=== PATIENT | female | born 1940 | race Caucasian/White ===

== ENCOUNTER 2022-05-18 10:00 | Outpatient (RCR) | payer MEDICARE, SELFPAY ==
--- NOTE | 2022-04-13 09:55 | PTOPEVAL1 ---
Assessment and note entered by Eduin Issa, PT, DPT Evaluation Information Assessment Status Evaluation Diagnosis R sided sciatic Onset 3-4 months Subjective Information Pt reports R sided buttock pain that travels down into her lees. She has received Cortizone injections which seem to help. Pt states she really enjoys cooking, she states her leg pain has been a limiting factor in this. She states sitting improves her pain. She reports a fall in October but no other falls since then. Reported Pain Level Pain Score 0: Self Report Assessment PT Clinical Summary Darleen is an active 82 y/o female who presents to therapy today for her initial evaluation with a diagnosis of R sided sciatic pain. Today she reports no tenderness to palpation in her piriformis nor glute med luna, and a negative slump test luna. She demonstrates generalized weakness of her hips globally as well as minor decreased hip ROM. She demonstrates a slow but safe gait pattern. Skilled physical therapy services are indicated to address hip weakness, improve hip ROM , manage pain, and to promote unlimited functional mobility. Plan of Care Interventions Gait Training,Hot Pack/Cold Pack,Manual Therapy, Neuro Re-education,Patient/Caregiver Educati, Therapeutic Activities,Therapeutic Exercise PT Services Indicated Yes Treatment Frequency and 2x/wk for 5 wks Duration These treatments will address the objective and functional deficits as defined above. The patient will be advanced safely and appropriately in order for the patient to progress towards his/her prior level of function. Additional exercises will be introduced and as well as a comprehensive home exercise program upon discharge, if needed, ?to ensure carryover of functional gains achieved in the clinic. This treatment plan has been reviewed and agreement upon by the patient.
--- NOTE | 2022-05-18 11:02 | PTOPPROG ---
Assessment and note entered by Eduin Issa, PT, DPT Evaluation Information Assessment Status Progress Diagnosis R sided sciatic Onset 3-4 months Subjective Information Pt states overall things are getting better but it seems to be slow, she attributes this to the change in weather. She reports good compliance with her HEP. She states she does not have any pain when sitting, when standing for too long her pain starts to increase. She states she does her exercises daily, she states she does her exercises again when her legs hurt and this gives her some relief. Pt reports 50% improvement in overall symptoms. Assessment PT Clinical Summary Darleen presents to therapy today for her progress report following 8 visits of skilled therapy. Today she reports 50% improvement with a decrease in subjective pain reports. She demonstrates good gross strength but decreased functional strength. She requires increased time to complete her 5xSTS as well as has a significantly decreased gait speed. Continuation of skilled physical therapy services are indicated to address the deficits noted above, to improve functional strength, to improve dynamic balance, to manage pain, and to promote safety. Plan of Care Interventions Gait Training,Hot Pack/Cold Pack,Manual Therapy, Neuro Re-education,Patient/Caregiver Educati, Therapeutic Activities,Therapeutic Exercise PT Services Indicated Yes Treatment Frequency and 1x/wk for 6 wks Duration These treatments will address the objective and functional deficits as defined above. The patient will be advanced safely and appropriately in order for the patient to progress towards his/her prior level of function. Additional exercises will be introduced and as well as a comprehensive home exercise program upon discharge, if needed, ?to ensure carryover of functional gains achieved in the clinic. This treatment plan has been reviewed and agreement upon by the patient.
--- NOTE | 2022-05-31 08:55 | PCPTNOTE ---
Patient called & cancelled scheduled appointment this date, she did not give a reason why.
--- NOTE | 2022-06-08 08:28 | PCPTNOTE ---
Patient canceled appointment today due to illness.
--- NOTE | 2022-06-15 08:22 | PTOPDC ---
Assessment and note entered by Eduin Issa, PT, DPT Evaluation Information Assessment Status Discharge - Pt Not Present Diagnosis R sided sciatic Onset 3-4 months Subjective Information Pt called and cancelled all of her remaining appointments this date d/t living being too busy to commit to therapy. Assessment PT Clinical Summary Darleen has completed 9 visits of skilled therapy from 04/13/22 to 05/18/22. She would like to be discharged at this time. If she is to return to therapy at a later date, she will need a new order . Plan of Care Treatment Frequency and to be discharged Duration
== END 2022-06-15 09:19 | disposition home or self-care (01) ==
LOC: ANHGOSHPT 10:00
PROVIDERS: PCP Physician Assistant Medical; Visit Provider Physician Assistant Medical
DX: M54.31 Sciatica, right side (principal)
CPT/HCPCS: 97110; 97112; 97116; 97140; 97161; 97530

== ENCOUNTER → 2022-11-25 10:20 | Outpatient (CLI) | payer MEDICARE, SELFPAY ==
--- NOTE | ~2022-11-25 | MR_ITS ---
. EXAMINATION: MR lumbar spine wo con DATE: 11/25/2022 11:17 INDICATION: Lumbar radicular pain. TECHNIQUE: Magnetic resonance imaging (MRI) of the lumbar spine was performed without intravenous con trast. Sequences included sagittal T2-weighted FSE, sagittal T2-weighted FS FSE, sagittal T1-weighted FSE, and axial T2-weighted FSE. COMPARISON: Lumbar spine radiographs 10/03/2022 FINDINGS: There is 4 degrees levocurvature of lumbar spine. There is 3 mm anterolisthesis of L4 on L5 . Vertebral body heights are normal. There is severely decreased disc height at L2-L3 and L3-L4. Ther e is interbody fusion at L5-S1. The distal spinal cord signal intensity is normal. The conus medullar is is at L1-L2. There is ligamentum flavum hypertrophy at the disc levels from L2-L3 through L3-L4. T here is a 2.1 cm cyst in right kidney. The following disc levels are specifically discussed: L1-L2: There is a central protrusion. There is mild bilateral facet joint osteoarthritis. There is no neural foraminal stenosis. There is mild central canal stenosis. L2-L3: The disc is bulging and has an annular fissure. There is moderate bilateral facet joint osteoa rthritis. There is mild bilateral neural foraminal stenosis. There is mild central canal stenosis. L3-L4: The disc is bulging and has an annular fissure. There is severe bilateral facet joint osteoart hritis. There is mild bilateral neural foraminal stenosis. There is mild central canal stenosis. L4-L5: The disc does not extend beyond the endplate margin. There is severe bilateral facet joint ost eoarthritis. There is mild bilateral neural foraminal stenosis. There is no central canal stenosis. L5-S1: The disc does not extend beyond the endplate margin. There is severe bilateral facet joint ost eoarthritis. There is mild left neural foraminal stenosis. There is no central canal stenosis. IMPRESSION: 1. Severe lumbar spondylosis. Reviewed, dictated and finalized at location A.
== END ==
PROVIDERS: PCP Physician Assistant Medical; Visit Provider Physical Medicine & Rehabilitation Pain Medicine
DX: M47.26 Other spondylosis with radiculopathy, lumbar region (principal)
CPT/HCPCS: 72148